=== PATIENT | female | born 1935 | race American Indian/Alaskan Native ===

== ENCOUNTER 2018-11-29 08:53 | Outpatient (CLI) | payer MEDICARE ==
--- NOTE | 2018-11-29 09:51 | XRay Report ---
PA and lateral chest: Cough. There is a generally coarse overall interstitial pattern which is slightly worse at the bases bilaterally. There is no nodule nor consolidation identified. No evidence of pleural effusion nor pleural thickening. The cardiac silhouette is grossly normal. There is no vascular congestion. The aortic arch is calcified and minimally tortuous. The bones are demineralized with no additional findings. I have no prior exam for comparison. Impression: The findings are most consistent with interstitial lung disease most likely on a chronic basis. If prior exams are available for comparison this would be helpful.
== END 2018-11-29 08:54 | disposition home or self-care (01) ==
LOC: SPVWC 08:53
PROVIDERS: ATTEND Internal Medicine
DX: R05 Cough (principal)
CPT/HCPCS: 71046